=== PATIENT | female | born 2000 | race Caucasian/White ===

== ENCOUNTER 2020-07-17 01:25 | Emergency (ER) | payer OTHER ==
[2020-07-17 01:45] VITALS: TEMP 98.3
[2020-07-17] MEDS ORDERED: SODIUM CHLORIDE 0.9% 1,000 ML IV STA ×2 (01:59)
--- NOTE | 2020-07-17 02:07 | ED ---
Recheck HPI - General Chief Complaint: Recheck/Abnormal Lab/Rx Stated Complaint: Leg numbness Time Seen by Provider: 07/17/20 01:58 Source: patient, RN notes reviewed, old records reviewed Mode of arrival: ambulatory Limitations: no limitations - History of Present Illness Initial Comments: This is a 19-year-old female DF for evaluation patient states is very tachycardic very anxious on arrival to ER with no pain. Patient presents today for evaluation regards to bilateral lower Shorty numbness and tingling. Patient just says, just had an elective early in less than a month. Patient did have an ultrasound showing positive intrauterine and was given injection. Patient has no bowel pain or other complaints MD Complaint: abnormal lab (Elective ) -: unknown (Numbness and tingling bilateral lower extremities) Returns Today for: other (Paresthesias) Symptoms Since Prior Visit: no new symptoms Context: other (none) Associated Symptoms: none Treatments Prior to Arrival: other (none) - Related Data Allergies Allergy/AdvReac Type Severity Reaction Status Date / Time No Known Allergies Allergy Verified 07/17/20 01:44 Review of Systems ROS Statement: Those systems with pertinent positive or pertinent negative responses have been documented in the HPI. ROS Other: All systems not noted in ROS Statement are negative. Past Medical History Past Medical History: No Reported History History of Any Multi-Drug Resistant Organisms: None Reported Past Surgical History: No Surgical Hx Reported Past Psychological History: No Psychological Hx Reported Smoking Status: Never smoker Past Alcohol Use History: None Reported Past Drug Use History: None Reported General Exam Limitations: no limitations General appearance: alert, in no apparent distress, anxious Head exam: Present: atraumatic, normocephalic, normal inspection Eye exam: Present: normal appearance, PERRL, EOMI. Absent: scleral icterus, conjunctival injection, periorbital swelling ENT exam: Present: normal exam, mucous membranes moist Neck exam: Present: normal inspection. Absent: tenderness, meningismus, lymphadenopathy Respiratory exam: Present: normal lung sounds bilaterally. Absent: respiratory distress, wheezes, rales, rhonchi, stridor Cardiovascular Exam: Present: normal rhythm, tachycardia, normal heart sounds. Absent: systolic murmur, diastolic murmur, rubs, gallop, clicks GI/Abdominal exam: Present: soft, normal bowel sounds. Absent: distended, tenderness, guarding, rebound, rigid Extremities exam: Present: normal inspection, full ROM, normal capillary refill. Absent: tenderness, pedal edema, joint swelling, calf tenderness Back exam: Present: normal inspection Neurological exam: Present: alert, oriented X3, CN II-XII intact Psychiatric exam: Present: normal affect, normal mood Skin exam: Present: warm, dry, intact, normal color. Absent: rash Course Vital Signs 07/17/20 07/17/20 07/17/20 01:38 02:03 03:00 Temperature 98.3 F Pulse Rate 131 H 111 H 106 H Respiratory 20 20 18 Rate Blood Pressure 125/74 130/86 114/72 O2 Sat by Pulse 98 99 100 Oximetry 07/17/20 03:38 Temperature Pulse Rate 97 Respiratory 18 Rate Blood Pressure 118/71 O2 Sat by Pulse 100 Oximetry - Reevaluation(s) Reevaluation #1: Medical record is reviewed Patient reevaluated in the emergency department, symptoms resolved Patient informed results questions answered Medical Decision Making - Medical Decision Making 19 female to the ER for leg numbness. Patient does have low potassium with decreased appetite. Symptoms improved here in the ER she can be discharged home likely related to recent injection and nausea - Lab Data Result diagrams: 07/17/20 02:21 07/17/20 02:21 Lab Results 07/17/20 07/17/20 07/17/20 Range/Units 02:21 02:21 02:21 WBC 15.6 H (4.0-11.0) k/uL RBC 4.86 (3.80-5.40) m/uL Hgb 13.6 (11.4-16.0) gm/dL Hct 40.3 (34.0-46.0) % MCV 82.8 (80.0-100.0) fL MCH 27.9 (25.0-35.0) pg MCHC 33.7 (31.0-37.0) g/dL RDW 13.0 (11.5-15.5) % Plt Count 264 (150-450) k/uL MPV 7.8 Neutrophils % 78 % Lymphocytes % 17 % Monocytes % 3 % Eosinophils % 1 % Basophils % 0 % Neutrophils # 12.2 H (1.3-7.7) k/uL Lymphocytes # 2.7 (1.0-4.8) k/uL Monocytes # 0.5 (0-1.0) k/uL Eosinophils # 0.1 (0-0.7) k/uL Basophils # 0.1 (0-0.2) k/uL PT 10.1 (9.0-12.0) sec INR 0.9 (<1.2) APTT 24.7 (22.0-30.0) sec Sodium (137-145) mmol/L Potassium (3.5-5.1) mmol/L Chloride (98-107) mmol/L Carbon Dioxide (22-30) mmol/L Anion Gap mmol/L BUN (7-17) mg/dL Creatinine (0.52-1.04) mg/dL Est GFR (CKD-EPI)AfAm (>60 ml/min/1.73 sqM) Est GFR (CKD-EPI)NonAf (>60 ml/min/1.73 sqM) Glucose (74-99) mg/dL Plasma Lactic Acid Jonn (0.7-2.0) mmol/L Calcium (8.4-10.2) mg/dL Ionized Calcium Ioana (4.5-5.3) mg/dL Phosphorus (2.5-4.5) mg/dL Magnesium (1.6-2.3) mg/dL Total Bilirubin (0.2-1.3) mg/dL AST (14-36) U/L ALT (4-34) U/L Alkaline Phosphatase (38-126) U/L Total Protein (6.3-8.2) g/dL Albumin (3.5-5.0) g/dL HCG, Quant mIU/mL Urine Color Light Yellow Urine Appearance Clear (Clear) Urine pH 5.5 (5.0-8.0) Ur Specific [place] 1.005 (1.001-1.035) Urine Protein Negative (Negative) Urine Glucose (UA) Negative (Negative) Urine Ketones Negative (Negative) Urine Blood Negative (Negative) Urine Nitrite Negative (Negative) Urine Bilirubin Negative (Negative) Urine Urobilinogen <2.0 (<2.0) mg/dL Ur Leukocyte Esterase Negative (Negative) Blood Type Blood Type Recheck Bld Type Recheck Status Antibody Screen Antibody Identification Direct Antiglob Test Spec Expiration Date 07/17/20 07/17/20 07/17/20 Range/Units 02:21 02:21 02:21 WBC (4.0-11.0) k/uL RBC (3.80-5.40) m/uL Hgb (11.4-16.0) gm/dL Hct (34.0-46.0) % MCV (80.0-100.0) fL MCH (25.0-35.0) pg MCHC (31.0-37.0) g/dL RDW (11.5-15.5) % Plt Count (150-450) k/uL MPV Neutrophils % % Lymphocytes % % Monocytes % % Eosinophils % % Basophils % % Neutrophils # (1.3-7.7) k/uL Lymphocytes # (1.0-4.8) k/uL Monocytes # (0-1.0) k/uL Eosinophils # (0-0.7) k/uL Basophils # (0-0.2) k/uL PT (9.0-12.0) sec INR (<1.2) APTT (22.0-30.0) sec Sodium 140 (137-145) mmol/L Potassium 3.3 L (3.5-5.1) mmol/L Chloride 103 (98-107) mmol/L Carbon Dioxide 24 (22-30) mmol/L Anion Gap 13 mmol/L BUN 8 (7-17) mg/dL Creatinine 0.66 (0.52-1.04) mg/dL Est GFR (CKD-EPI)AfAm >90 (>60 ml/min/1.73 sqM) Est GFR (CKD-EPI)NonAf >90 (>60 ml/min/1.73 sqM) Glucose 113 H (74-99) mg/dL Plasma Lactic Acid Jonn 1.4 (0.7-2.0) mmol/L Calcium 10.2 (8.4-10.2) mg/dL Ionized Calcium Ioana 5.1 (4.5-5.3) mg/dL Phosphorus 3.2 (2.5-4.5) mg/dL Magnesium 1.8 (1.6-2.3) mg/dL Total Bilirubin 0.3 (0.2-1.3) mg/dL AST 20 (14-36) U/L ALT 10 (4-34) U/L Alkaline Phosphatase 72 (38-126) U/L Total Protein 7.7 (6.3-8.2) g/dL Albumin 4.8 (3.5-5.0) g/dL HCG, Quant 105560.0 mIU/mL Urine Color Urine Appearance (Clear) Urine pH (5.0-8.0) Ur Specific [place] (1.001-1.035) Urine Protein (Negative) Urine Glucose (UA) (Negative) Urine Ketones (Negative) Urine Blood (Negative) Urine Nitrite (Negative) Urine Bilirubin (Negative) Urine Urobilinogen (<2.0) mg/dL Ur Leukocyte Esterase (Negative) Blood Type O Negative Blood Type Recheck No Previous Record Bld Type Recheck Status CABO Indicated Antibody Screen POSITIVE Antibody Identification Anti-D Direct Antiglob Test Negative Spec Expiration Date 07/20/20202320 - EKG Data -: EKG Interpreted by Me (EKG is sinus tachycardia 114 VT 132 QRS 76 QTC 440) Disposition Clinical Impression: Paresthesia, Hypokalemia Disposition: HOME SELF-CARE Condition: Good Instructions (If sedation given, give patient instructions): Hypokalemia (ED), Paresthesia (ED) Is patient prescribed a controlled substance at d/c from ED?: No Referrals: None,Stated [Primary Care Provider] - 1-2 days
[2020-07-17 02:38] LABS: Basophils # (A) 0.1 k/uL (0-0.2); Basophils % (A) 0 %; Eosinophils # (A) 0.1 k/uL (0-0.7); Eosinophils % (A) 1 %; HCT 40.3 % (34.0-46.0); HGB 13.6 gm/dL (11.4-16.0); Lymphocytes # (A) 2.7 k/uL (1.0-4.8); Lymphocytes % (A) 17 %; MCH 27.9 pg (25.0-35.0); MCHC 33.7 g/dL (31.0-37.0); MCV 82.8 fL (80.0-100.0); Mean Platelet Volume 7.8; Monocytes # (A) 0.5 k/uL (0-1.0); Monocytes % (A) 3 %; Neutrophils # (A) 12.2 k/uL (1.3-7.7); Neutrophils % (A) 78 %; Platelet Count 264 k/uL (150-450); RBC 4.86 m/uL (3.80-5.40); WBC 15.6 k/uL (4.0-11.0)
[2020-07-17 02:41] LABS: Appearance,Urine Clear (Clear); Bilirubin,Urine Negative (Negative); Blood,Urine Negative (Negative); Color,Urine Light Yellow; Glucose,Urine (UA) Negative (Negative); Ketones,Urine Negative (Negative); Leukocyte Esterase,Urine Negative (Negative); Nitrite,Urine Negative (Negative); PH, Urine 5.5 (5.0-8.0); Protein,Urine Negative (Negative); Specific Gravity,Urine 1.005 (1.001-1.035); Urobilinogen,Urine <2.0 mg/dL (<2.0)
[2020-07-17 02:47] LABS: INR 0.9 (<1.2); Partial Thromboplastin Time 24.7 sec (22.0-30.0); Prothrombin Time 10.1 sec (9.0-12.0)
[2020-07-17 02:49] LABS: ALT 10 U/L (4-34); AST 20 U/L (14-36); African American GFR (CKD) >90 (>60 ml/min/1.73 sqM); Albumin 4.8 g/dL (3.5-5.0); Alkaline Phosphatase 72 U/L (38-126); Anion Gap 13 mmol/L; Blood Urea Nitrogen 8 mg/dL (7-17); Calcium 10.2 mg/dL (8.4-10.2); Carbon Dioxide 24 mmol/L (22-30); Chloride 103 mmol/L (98-107); Glucose 113 mg/dL (74-99); Magnesium 1.8 mg/dL (1.6-2.3); Non-African American GFR(CKD) >90 (>60 ml/min/1.73 sqM); Phosphorus 3.2 mg/dL (2.5-4.5); Potassium 3.3 mmol/L (3.5-5.1); Sodium 140 mmol/L (137-145); Total Bilirubin 0.3 mg/dL (0.2-1.3); Total Protein 7.7 g/dL (6.3-8.2)
[2020-07-17] MEDS ORDERED: POTASSIUM CHLORIDE ER 20 MEQ TAB.ER PO STA (02:51)
[2020-07-17] MEDS ORDERED: POTASSIUM BICARBONATE/CIT AC 20 MEQ TABLET.EFF PO ONE (02:52)
[2020-07-17 02:53] LABS: Ionized Calcium 5.1 mg/dL (4.5-5.3)
[2020-07-17 03:39] VITALS: BP 118/71; PULSE 97; RESP 18
== END 2020-07-17 03:52 | disposition home or self-care (01) ==
LOC: EC 01:25
DX: E87.6 Hypokalemia (principal)
CPT/HCPCS: 36415; 80053; 81003; 82330; 83605; 83735; 84100; 84702; 85025; 85610; 85730; 86850; 86870; 86880; 86900; 86901; 93005; 96360; 99283

== ENCOUNTER 2020-07-28 05:43 | Emergency (ER) | payer OTHER ==
[2020-07-28 05:50] VITALS: TEMP 98.3
[2020-07-28] MEDS ORDERED: SODIUM CHLORIDE 0.9% 1,000 ML IV ONE (05:56)
[2020-07-28] MEDS ORDERED: SODIUM CHLORIDE 0.9% 1,000 ML IV SCH (06:00)
[2020-07-28 06:32] LABS: Basophils % (A) 0 %; Eosinophils # (A) 0.2 k/uL (0-0.7); Eosinophils % (A) 2 %; HCT 36.1 % (34.0-46.0); HGB 12.5 gm/dL (11.4-16.0); Lymphocytes # (A) 3.4 k/uL (1.0-4.8); Lymphocytes % (A) 30 %; MCH 28.7 pg (25.0-35.0); MCHC 34.5 g/dL (31.0-37.0); MCV 83.2 fL (80.0-100.0); Mean Platelet Volume 7.5; Monocytes # (A) 0.5 k/uL (0-1.0); Monocytes % (A) 4 %; Neutrophils # (A) 7.1 k/uL (1.3-7.7); Neutrophils % (A) 63 %; Platelet Count 275 k/uL (150-450); RBC 4.34 m/uL (3.80-5.40); RDW 12.6 % (11.5-15.5); WBC 11.2 k/uL (4.0-11.0)
[2020-07-28 06:43] LABS: ALT 12 U/L (4-34); AST 25 U/L (14-36); African American GFR (CKD) >90 (>60 ml/min/1.73 sqM); Albumin 4.6 g/dL (3.5-5.0); Alkaline Phosphatase 83 U/L (38-126); Anion Gap 11 mmol/L; Blood Urea Nitrogen 10 mg/dL (7-17); Calcium 9.7 mg/dL (8.4-10.2); Carbon Dioxide 24 mmol/L (22-30); Chloride 105 mmol/L (98-107); Glucose 119 mg/dL (74-99); Non-African American GFR(CKD) >90 (>60 ml/min/1.73 sqM); Potassium 3.8 mmol/L (3.5-5.1); Sodium 140 mmol/L (137-145); Total Bilirubin 0.4 mg/dL (0.2-1.3); Total Protein 7.8 g/dL (6.3-8.2)
[2020-07-28 07:00] LABS: HCG,Quantitative Serum 3580.7 mIU/mL
[2020-07-28 07:23] VITALS: BP 120/67; PULSE 109; RESP 16
--- NOTE | 2020-07-28 07:38 | US ---
EXAMINATION TYPE: Transabdominal DATE OF EXAM: 07/28/2020 7:21 AM COMPARISON: NONE CLINICAL HISTORY: bleeding after 2 weeks ago. Pt states having elective 1 week ago/ pt states heavy vaginal bleeding EXAM PERFORMED: Transabdominal (TA) EXAM MEASUREMENTS: GESTATIONAL AGE / DATING Physician Established: Not yet established Dates by LMP: Unsure, pt states having at 8wks 2 days gestation Dates by Current Scan for: No IUP seen at this time MATERNAL ANATOMY Uterus: 9.1 x 4.1 x 5.0 cm Right Ovary: 3.0 x 2.6 x 2.4 cm Left Ovary: 3.0 x 2.3 x 2.9 cm Post CDS / Adnexa: wnl Presence of free fluid: No GESTATION / SURVEY IUP: No IUP seen at this time Beta HcG (if available): 3580 There is no evidence of intrauterine . The endometrial thickness is 1.6 cm, which is thicken ed. The endometrium is heterogeneous with increased color vascularity suggesting retained products of conception. IMPRESSION: 1. Thickened endometrial lining measuring up to 1.6 cm with color vascularity. These findings are sug gestive of retained products of conception. No evidence of intrauterine . Obstetric evaluati on is recommended.
--- NOTE | 2020-07-28 07:58 | ED ---
Female Urogenital HPI - General Chief complaint: Vaginal Bleeding Stated complaint: Vaginal bleeding Time Seen by Provider: 07/28/20 05:55 Source: patient Mode of arrival: ambulatory Limitations: no limitations - History of Present Illness Initial comments: 19yo female 8 days out from a medically induced performed at [facility] presenting to the ER to day for cc of heavier bleeding. pt states that initially after taking the "second pill" she had some cramping. Pt states that she had mild bleeding, but for the past 2 days after doing squats she has had increasd bleeding/clots. pt was unsure if this was normal or if she was bleeding too much and came in for evaluation. Pt denies pain. Denies fevers,lightheadedness, presyncope,nausea, dyspnea or cold intolerance. pt worked up in triage because she states she knew she needed to tell her mother that was with her-pt told her herself. Patient has no additional complaints. Pt states she is O- and was given rhogam at the clinic last week. - Related Data Home Medications Medication Instructions Recorded Confirmed Ibuprofen [Motrin Ib] 400 - 800 mg PO Q6H PRN 07/28/20 07/28/20 Allergies Allergy/AdvReac Type Severity Reaction Status Date / Time No Known Allergies Allergy Verified 07/28/20 07:40 Review of Systems ROS Statement: Those systems with pertinent positive or pertinent negative responses have been documented in the HPI. ROS Other: All systems not noted in ROS Statement are negative. Past Medical History Past Medical History: No Reported History History of Any Multi-Drug Resistant Organisms: None Reported Past Surgical History: No Surgical Hx Reported Past Psychological History: No Psychological Hx Reported Smoking Status: Never smoker Past Alcohol Use History: None Reported Past Drug Use History: None Reported General Exam - General Exam Comments Initial Comments: HgB stable. Bleeding on exam very mild, products of conception coming through os were pulled out. pt US revealed possible retained products. i feel she is actively miscarrying. bleeding is mild/moderate. consulted OB Dr Beal who agrees. HCG trending downward. pt will be monitored outpatient. pt states she is comfortable with discharge, feeling "fine", return parameters discussed who is agreeable to care plan. Dr Espinosa agreeable to care plan and discharge. Limitations: no limitations Course Vital Signs 07/28/20 07/28/20 07/28/20 05:44 07:22 08:13 Temperature 98.3 F 98.3 F Pulse Rate 129 H 109 H 109 H Respiratory 18 16 16 Rate Blood Pressure 126/78 120/67 120/67 O2 Sat by Pulse 97 97 97 Oximetry Medical Decision Making - Lab Data Result diagrams: 07/28/20 06:25 07/28/20 06:25 Lab Results 07/28/20 07/28/20 07/28/20 Range/Units 06:25 06:25 06:25 WBC 11.2 H (4.0-11.0) k/uL RBC 4.34 (3.80-5.40) m/uL Hgb 12.5 (11.4-16.0) gm/dL Hct 36.1 (34.0-46.0) % MCV 83.2 (80.0-100.0) fL MCH 28.7 (25.0-35.0) pg MCHC 34.5 (31.0-37.0) g/dL RDW 12.6 (11.5-15.5) % Plt Count 275 (150-450) k/uL MPV 7.5 Neutrophils % 63 % Lymphocytes % 30 % Monocytes % 4 % Eosinophils % 2 % Basophils % 0 % Neutrophils # 7.1 (1.3-7.7) k/uL Lymphocytes # 3.4 (1.0-4.8) k/uL Monocytes # 0.5 (0-1.0) k/uL Eosinophils # 0.2 (0-0.7) k/uL Basophils # 0.0 (0-0.2) k/uL Sodium 140 (137-145) mmol/L Potassium 3.8 (3.5-5.1) mmol/L Chloride 105 (98-107) mmol/L Carbon Dioxide 24 (22-30) mmol/L Anion Gap 11 mmol/L BUN 10 (7-17) mg/dL Creatinine 0.66 (0.52-1.04) mg/dL Est GFR (CKD-EPI)AfAm >90 (>60 ml/min/1.73 sqM) Est GFR (CKD-EPI)NonAf >90 (>60 ml/min/1.73 sqM) Glucose 119 H (74-99) mg/dL Calcium 9.7 (8.4-10.2) mg/dL Total Bilirubin 0.4 (0.2-1.3) mg/dL AST 25 (14-36) U/L ALT 12 (4-34) U/L Alkaline Phosphatase 83 (38-126) U/L Total Protein 7.8 (6.3-8.2) g/dL Albumin 4.6 (3.5-5.0) g/dL HCG, Quant 3580.7 mIU/mL Blood Type O Negative Blood Type Recheck O Neg Bld Type Recheck Status No Antibody Screen POSITIVE Antibody Identification Anti-D Direct Antiglob Test Negative Spec Expiration Date 07/31/20202324 Disposition Clinical Impression: Miscarriage Disposition: HOME SELF-CARE Condition: Good Instructions (If sedation given, give patient instructions): Miscarriage (ED) Additional Instructions: Please use medication as discussed. Please follow-up with Dr Beal in 3-5 days, call office to make appointment she is aware of your case. Please return to emergency room if the symptoms increase or worsen or for any other concerns- bleeding as discussed, lightheaded. Is patient prescribed a controlled substance at d/c from ED?: No Referrals: None,Stated [Primary Care Provider] - 1-2 days Elissa Beal DO [Doctor of Osteopathic Medicine] - 1-2 days Time of Disposition: 07:58
== END 2020-07-28 08:14 | disposition home or self-care (01) ==
LOC: EC 05:43
DX: O03.9 Complete or unspecified spontaneous abortion without complication (principal)
CPT/HCPCS: 36415; 76801; 80053; 84702; 85025; 86850; 86870; 86880; 86900; 86901; 99284

== ENCOUNTER 2020-08-31 13:56 | Emergency (ER) | payer OTHER ==
[2020-08-31 14:04] VITALS: TEMP 97.7
--- NOTE | 2020-08-31 15:25 | ED ---
Female Urogenital HPI - General Chief complaint: Vaginal Bleeding Stated complaint: vaginal bleeding Time Seen by Provider: 08/31/20 15:09 Source: patient Mode of arrival: ambulatory Limitations: no limitations - History of Present Illness Initial comments: Carol is a 19yo Female since to the ER today for reevaluation of persistent vaginal bleeding. Patient reports that she had an elective medical in early July, she was seen on July 28 at which time she was actively miscarrying and products of conception were removed from the cervical os. Patient reports she's had persistent spotting since that time but today began having heavier bleeding and passed a blood clot approximately the size of her palm. Patient contacted her retirement plan counselor office and was advised to come to the ER for further evaluation. Other stresses concerns patient has been sleeping more than usual, very tired, appears pale. Patient reports that she feels she is at her baseline. - Related Data Home Medications Medication Instructions Recorded Confirmed Ibuprofen [Motrin Ib] 400 - 800 mg PO Q6H PRN 07/28/20 07/28/20 Allergies Allergy/AdvReac Type Severity Reaction Status Date / Time No Known Allergies Allergy Verified 08/31/20 14:04 Review of Systems ROS Statement: Those systems with pertinent positive or pertinent negative responses have been documented in the HPI. ROS Other: All systems not noted in ROS Statement are negative. Past Medical History Past Medical History: No Reported History History of Any Multi-Drug Resistant Organisms: None Reported Past Surgical History: No Surgical Hx Reported Past Psychological History: No Psychological Hx Reported Smoking Status: Never smoker Past Alcohol Use History: None Reported Past Drug Use History: None Reported General Exam - General Exam Comments Initial Comments: Physical Exam GENERAL: Patient is well-developed and well-nourished. Patient is nontoxic and well- hydrated and is in no distress. HENT: Normocephalic, Atraumatic. EYES: PERRL, EOMI No conjunctival pallor PULMONARY: Unlabored respirations. No audible rales rhonchi or wheezing was noted. CARDIOVASCULAR: Tachycardic, regular ABDOMEN: Soft and nontender with normal bowel sounds. SKIN: Skin is clear with no lesions or rashes and otherwise unremarkable. : Dark blood in vaginal vault Cervical os is closed NEUROLOGIC: Patient is alert and oriented x3. Moving all extremities spontaneously MUSCULOSKELETAL: Normal extremities with adequate strength and full range of motion. No lower extremity swelling or edema. No calf tenderness. PSYCHIATRIC: Normal psychiatric evaluation. Limitations: no limitations Course Vital Signs 08/31/20 08/31/20 14:01 17:35 Temperature 97.7 F Pulse Rate 120 H 70 Respiratory 18 16 Rate Blood Pressure 129/76 110/70 O2 Sat by Pulse 98 100 Oximetry Medical Decision Making - Medical Decision Making Patient was seen and evaluated history is obtained from the patient Labs and imaging were obtained Pelvic exam with a closed cervical disc, dark blood in the vaginal vault Ultrasound with scant fluid in the endometrium and cervical canal Beta hCG has decreased to <25 Results were discussed with Dr. Lemon, considering that the patient is quite stable, stable hemoglobin no significant active bleeding and a trending down. HEENT he does not feel an emergent D&C is indicated at this time. He recommends her follow-up with her retirement plan counselor Dr. Beal in office next week, likely for repeat blood work and imaging. Did discuss the possibility the patient recently having her first period after her termination and this could be a very heavy period. This plan was discussed with the patient who is agreeable. Return parameters were discussed. All questions pertaining care were answered to the best of my ability patient was discharged home in stable condition. - Lab Data Result diagrams: 08/31/20 15:27 08/31/20 15:27 Lab Results 08/31/20 08/31/20 Range/Units 15:27 15:27 WBC 7.0 (4.0-11.0) k/uL RBC 4.31 (3.80-5.40) m/uL Hgb 12.2 (11.4-16.0) gm/dL Hct 35.9 (34.0-46.0) % MCV 83.4 (80.0-100.0) fL MCH 28.3 (25.0-35.0) pg MCHC 33.9 (31.0-37.0) g/dL RDW 12.3 (11.5-15.5) % Plt Count 257 (150-450) k/uL MPV 8.1 Neutrophils % 69 % Lymphocytes % 23 % Monocytes % 4 % Eosinophils % 2 % Basophils % 0 % Neutrophils # 4.8 (1.3-7.7) k/uL Lymphocytes # 1.6 (1.0-4.8) k/uL Monocytes # 0.3 (0-1.0) k/uL Eosinophils # 0.1 (0-0.7) k/uL Basophils # 0.0 (0-0.2) k/uL Sodium 139 (137-145) mmol/L Potassium 4.1 (3.5-5.1) mmol/L Chloride 104 (98-107) mmol/L Carbon Dioxide 25 (22-30) mmol/L Anion Gap 10 mmol/L BUN 11 (7-17) mg/dL Creatinine 0.74 (0.52-1.04) mg/dL Est GFR (CKD-EPI)AfAm >90 (>60 ml/min/1.73 sqM) Est GFR (CKD-EPI)NonAf >90 (>60 ml/min/1.73 sqM) Glucose 103 H (74-99) mg/dL Calcium 9.4 (8.4-10.2) mg/dL Total Bilirubin 0.3 (0.2-1.3) mg/dL AST 28 (14-36) U/L ALT 21 (4-34) U/L Alkaline Phosphatase 93 (38-126) U/L Total Protein 7.3 (6.3-8.2) g/dL Albumin 4.5 (3.5-5.0) g/dL HCG, Quant 21.4 mIU/mL Disposition Clinical Impression: Vaginal bleeding Disposition: HOME SELF-CARE Condition: Stable Additional Instructions: Contact Dr Beal's office tomorrow for follow up next week Return to the ER for any bleeding through a pad an hour for >3 hours, chest pain, palpitations, shortness of breath or lightheadedness or any new or concerning symptoms Is patient prescribed a controlled substance at d/c from ED?: No Referrals: Juan Manuel Mcginnis [Primary Care Provider] - 1-2 days
[2020-08-31 16:20] LABS: Basophils % (A) 0 %; Eosinophils # (A) 0.1 k/uL (0-0.7); Eosinophils % (A) 2 %; HCT 35.9 % (34.0-46.0); HGB 12.2 gm/dL (11.4-16.0); Lymphocytes # (A) 1.6 k/uL (1.0-4.8); Lymphocytes % (A) 23 %; MCH 28.3 pg (25.0-35.0); MCHC 33.9 g/dL (31.0-37.0); MCV 83.4 fL (80.0-100.0); Mean Platelet Volume 8.1; Monocytes # (A) 0.3 k/uL (0-1.0); Monocytes % (A) 4 %; Neutrophils # (A) 4.8 k/uL (1.3-7.7); Neutrophils % (A) 69 %; Platelet Count 257 k/uL (150-450); RBC 4.31 m/uL (3.80-5.40); RDW 12.3 % (11.5-15.5)
[2020-08-31 16:38] LABS: ALT 21 U/L (4-34); AST 28 U/L (14-36); African American GFR (CKD) >90 (>60 ml/min/1.73 sqM); Albumin 4.5 g/dL (3.5-5.0); Alkaline Phosphatase 93 U/L (38-126); Anion Gap 10 mmol/L; Blood Urea Nitrogen 11 mg/dL (7-17); Calcium 9.4 mg/dL (8.4-10.2); Carbon Dioxide 25 mmol/L (22-30); Chloride 104 mmol/L (98-107); Glucose 103 mg/dL (74-99); Non-African American GFR(CKD) >90 (>60 ml/min/1.73 sqM); Potassium 4.1 mmol/L (3.5-5.1); Sodium 139 mmol/L (137-145); Total Bilirubin 0.3 mg/dL (0.2-1.3); Total Protein 7.3 g/dL (6.3-8.2)
--- NOTE | 2020-08-31 16:47 | US ---
EXAMINATION TYPE: US transvaginal DATE OF EXAM: 08/31/2020 COMPARISON: NONE CLINICAL HISTORY: vaginal bleeding after miscarriage. Had bleeding clotting today. TECHNIQUE: Transvaginal (TV). EXAM MEASUREMENTS: Uterus: 7.5 x 3.7 x 5.2 cm Endometrial Stripe: 1.2 cm Right Ovary: 4.3 x 1.8 x 2.0 cm Left Ovary: 4.1 x 2.3 x 2.8 cm 1. Uterus: Anteverted Anechoic area seen in cervix 1.0 cm 2. Endometrium: Thickened heterogenoous with increased vascularity. 3. Right Ovary: wnl 4. Left Ovary: wnl Spectral, color and waveform doppler imaging shows good arterial and venous flow within the ovaries ; there is no evidence for ovarian torsion. 5. Bilateral Adnexa: wnl 6. Posterior cul-de-sac: wnl IMPRESSION: 6 mm fluid collection in the endometrial cavity. Small amount of fluid in the cervical canal. This is consistent with incomplete . No evidence of ovarian torsion.
[2020-08-31 16:50] LABS: HCG,Quantitative Serum 21.4 mIU/mL
[2020-08-31 17:36] VITALS: BP 110/70; PULSE 70; RESP 16
== END 2020-08-31 17:35 | disposition home or self-care (01) ==
LOC: EC 13:56
DX: N93.9 Abnormal uterine and vaginal bleeding, unspecified (principal)
CPT/HCPCS: 36415; 76830; 80053; 84702; 85025; 93975; 99284

== ENCOUNTER → 2021-11-05 | Outpatient (CLI) | payer OTHER ==
[2021-11-05 18:13] LABS: Basophils # (A) 0.05 X 10*3/uL (0.00-0.10); Basophils % (A) 0.6 %; Eosinophils # (A) 0.15 X 10*3/uL (0.04-0.35); Eosinophils % (A) 1.7 %; HCT 43.6 % (37.2-46.3); HGB 14.2 g/dL (12.0-15.0); Immature Grans, Automated 0.3 %; Lymphocytes # (A) 2.95 X 10*3/uL (0.90-5.00); Lymphocytes % (A) 33.3 %; MCH 27.6 pg (27.0-32.0); MCHC 32.6 g/dL (32.0-37.0); MCV 84.7 fL (80.0-97.0); Mean Platelet Volume 10.5 fL (9.5-12.2); Monocytes # (A) 0.58 X 10*3/uL (0.20-1.00); Monocytes % (A) 6.5 %; NRBC Per 100 WBC 0 /100 WBCS (0.0-0.0); Neutrophils % (A) 57.6 %; Platelet Count 272 X 10*3/uL (140-440); RBC 5.15 X 10*6/uL (4.10-5.20); RDW 12.6 % (11.5-14.5); WBC 8.86 X 10*3/uL (4.50-10.00)
[2021-11-05 18:45] LABS: ALT 60 U/L (8-44); AST 25 U/L (13-35); Albumin 4.8 g/dL (3.8-4.9); Albumin/Globulin Ratio 1.66 (1.60-3.17); Alkaline Phosphatase 114 U/L (41-126); BUN/Creat Ratio 11.38 Ratio (12.00-20.00); Blood Urea Nitrogen 9.1 mg/dL (9.0-27.0); Calcium 9.8 mg/dL (8.7-10.3); Chloride 102 mmol/L (96-109); Globulin 2.9 g/dL (1.6-3.3); Glucose 88 mg/dL (70-110); Non-African American GFR(CKD) 106.1 (60.0-200.0); Potassium 4.3 mmol/L (3.5-5.5); Sodium 138 mmol/L (135-145); Total Protein 7.7 g/dL (6.2-8.2)
== END | disposition home or self-care (01) ==
LOC: LABWHC1 13:01
PROVIDERS: ATTEND Family Medicine
DX: R07.89 Other chest pain (principal); R00.2 Palpitations
CPT/HCPCS: 36415; 80053; 84443; 85025

== ENCOUNTER → 2021-12-10 | Outpatient (CLI) | payer OTHER | END | disposition home or self-care (01) | LOC: RADECHMAIN 08:00 | PROVIDERS: ATTEND Family Medicine | DX: R07.89 Other chest pain (principal); R00.2 Palpitations; R42 Dizziness and giddiness | CPT/HCPCS: 93225; 93226 ==

== ENCOUNTER → 2023-07-07 | Outpatient (CLI) | payer OTHER ==
--- NOTE | 2023-07-07 14:19 | US ---
EXAMINATION TYPE: US pelvic complete DATE OF EXAM: 07/07/2023 COMPARISON: 08/31/2020 CLINICAL INDICATION: Female, 22 years old with history of N91.2 AMENORHHEA; AUB since in aug - no menses since january 2022 TECHNIQUE: Transabdominal sonographic images of the pelvis were acquired. Transvaginal sonographi c images were not medically necessary Date of LMP: January 2022 EXAM MEASUREMENTS: Uterus: 5.8 x 2.9 x 4.1 cm Endometrial Stripe: 0.3 cm Right Ovary: 4.8 x 2.5 x 4.0 cm Left Ovary: 4.3 x 3.2 x 2.0 cm 1. Uterus: Anteverted wnl 2. Endometrium: wnl 3. Right Ovary: wnl 4. Left Ovary: wnl 5. Bilateral Adnexa: wnl 6. No free fluid in the cul-de-sac. IMPRESSION: No significant amount is seen.
== END | disposition home or self-care (01) ==
LOC: RADUSWWP 10:14
PROVIDERS: ATTEND Family Medicine
DX: N91.2 Amenorrhea, unspecified (principal)
CPT/HCPCS: 76856